=== PATIENT | female | born 1985 | race Caucasian/White ===

== ENCOUNTER 2018-02-05 10:02 | Outpatient (CLI) | payer MEDICAID ==
[~2018-02-05 10:02] MED LIST: LAMO5TAB3 PO
== END 2018-02-05 23:59 | disposition home or self-care (01) ==
LOC: RAD 10:02
PROVIDERS: ATTEND Psychiatry & Neurology Vascular Neurology
DX: G40.909 Epilepsy, unspecified, not intractable, without status epilepticus (principal); Z86.69 Personal history of other diseases of the nervous system and sense organs
CPT/HCPCS: 95816